=== PATIENT | male | born 1995 | race Caucasian/White ===

== ENCOUNTER 2023-07-27 10:53 | Emergency (ER) | payer SELFPAY ==
[~2023-07-27] VITALS: Ht 167.6 cm; Wt 63.0 kg
[2023-07-27 10:56] VITALS: PULSE 100
[2023-07-27 10:58] VITALS: BP 138/87; RESP 18; TEMP 98.6; O2SAT 99
[2023-07-27] MEDS: BACITRACIN ZINC OINT UDPKT TOP ONE (13:11)
[2023-07-27] MEDS: LIDOCAINE HCL/PF 1% 10 MG/ML 5ML VIAL INFIL ONE (13:11)
[2023-07-27] MEDS ORDERED: CEPH500T MT (13:49)
== END 2023-07-27 14:03 | disposition home or self-care (01) ==
LOC: ER 10:53
DX: L02.11 Cutaneous abscess of neck (principal); J45.909 Unspecified asthma, uncomplicated
CPT/HCPCS: 99283; 10060; J3490